=== PATIENT | male | born 1955 | race African-American/Black ===

== ENCOUNTER 2017-06-08 11:34 | Emergency (ER) | payer MEDICARE, OTHER ==
[~2017-06-08] VITALS: Ht 177.8 cm; Wt 105.0 kg
[2017-06-08 13:23] LABS: BASOPHILS % 0.9 % (0.0-2.0); CHLORIDE 108 mEq/L (98-107); EOSINOPHILS % 2.7 % (0.0-5.0); HEMATOCRIT. 34.6 % (42.0-52.0); HEMOGLOBIN. 11.3 g/dL (14.0-18.0); LYMPHOCYTES % 17.2 % (20.0-50.0); MEAN CORPUSCULAR HEMOGLOBIN 26.8 pg (28.0-32.0); MEAN CORPUSCULAR VOLUME 81.7 fL (80.0-94.0); MEAN PLATELET VOLUME 9.1 fl (7.4-10.4); MONOCYTES % 9.3 % (2.0-8.0); NEUTROPHILS % 69.9 % (40.0-76.0); PLATELET 173 x1000/uL (130-400); RED BLOOD CELL COUNT 4.23 mill/uL (4.7-6.1); RED CELL DISTRIBUTION WIDTH 13.8 % (11.6-14.6)
[2017-06-08 13:25] LABS: PARTIAL THROMBOPLASTIN TIME 26.5 sec (23.4-31.0); PROTHROMBIN TIME 10.7 sec (9.4-11.6)
[2017-06-08 13:28] LABS: CARBON DIOXIDE 26 mEq/L (21-32)
[2017-06-08] MEDS: HYDROCODONE/ACETAMINOPHEN 5/325MG TABLET PO ONE (14:06)
[2017-06-08] MEDS: CLONIDINE 0.2MG TABLET PO ONE (16:46)
[2017-06-08 16:47] VITALS: BP 182/99
== END 2017-06-08 17:03 | disposition home or self-care (01) ==
LOC: ER 13:35
DX: M10.9 Gout, unspecified (principal); M79.672 Pain in left foot; I10 Essential (primary) hypertension; N19 Unspecified kidney failure; Z72.0 Tobacco use
CPT/HCPCS: 36415; 73610; 73630; 80053; 84550; 85025; 85610; 85730; 93971; 99285